=== PATIENT | female | born 1955 | race Caucasian/White ===

== ENCOUNTER 2022-11-20 11:46 | Emergency (ER) | payer MEDICARE ==
[~2022-11-20] VITALS: Ht 162.6 cm; Wt 68.0 kg
[2022-11-20 12:22] LABS: BASOPHILS # (AUTO) 0.1 X10'3 (0-0.2); BASOPHILS % (AUTO) 0.9 % (0-1); EOSINOPHILS # (AUTO) 0.1 X10'3 (0-0.9); HEMATOCRIT 40.2 % (35.0-45.0); HEMOGLOBIN 13.6 g/dl (12.0-16.0); LYMPHOCYTES % (AUTO) 27.6 % (21-51); MEAN CORPUSCULAR HEMOGLOBIN 29.9 PG (27.0-31.0); MEAN CORPUSCULAR HGB CONC 33.8 g/dL (33.0-36.5); MEAN CORPUSCULAR VOLUME 88.6 FL (78-98); MEAN PLATELET VOLUME 7.9 FL (7.4-10.4); MONOCYTES # (AUTO) 0.5 X10'3 (0-0.9); MONOCYTES % (AUTO) 7.4 % (2-12); NEUTROPHILS # (AUTO) 4.6 X10'3 (1.8-7.7); NEUTROPHILS % (AUTO) 63.1 % (42-75); PLATELET COUNT 255 X10'3 (140-440); RED BLOOD COUNT 4.54 X10'6 (4.20-5.60); WHITE BLOOD COUNT 7.3 X10'3 (4.5-11.0)
[2022-11-20 12:29] VITALS: BP 139/95
[2022-11-20 12:40] LABS: ALANINE AMINOTRANSFERASE 31 U/L (12-78); ALBUMIN/GLOBULIN RATIO 1.1 (1.1-1.5); ALKALINE PHOSPHATASE 95 IU/L (46-116); ANION GAP 8 (8-16); ASPARTATE AMINO TRANSFERASE 26 U/L (10-37); BILIRUBIN,TOTAL 0.5 MG/DL (0.1-1.0); BLOOD UREA NITROGEN 16 MG/DL (7-18); BUN/CREATININE RATIO 16.3 (10.0-20.0); CALCIUM 9.2 MG/DL (8.5-10.1); CHLORIDE 100 MMOL/L (99-107); CREATININE 0.98 MG/DL (0.40-0.90); GLUCOSE 91 MG/DL (70-104); POTASSIUM 3.9 MMOL/L (3.5-5.1); SODIUM 137 MMOL/L (135-145); TOTAL CARBON DIOXIDE 28.8 MMOL/L (24-32); TOTAL PROTEIN 7.8 G/DL (6.4-8.2); eGFR 57 ML/MIN
== END 2022-11-20 15:30 | disposition home or self-care (01) ==
LOC: ER 11:47
DX: R55 Syncope and collapse (principal); Z91.041 Radiographic dye allergy status; Z56.0 Unemployment, unspecified
CPT/HCPCS: 36415; 71045; 80053; 84484; 85025; 93005; 99285

== ENCOUNTER 2023-03-24 06:07 | Emergency (ER) | payer MEDICARE ==
[~2023-03-24] VITALS: Ht 162.6 cm; Wt 150.0 kg
[2023-03-24 06:07] VITALS: BP 135/60; PULSE 86; RESP 16; TEMP 98.8; O2SAT 95
[2023-03-24] MEDS ORDERED: dexamethasone sod phosphate 10mg/ml inj PO STA (08:42)
[2023-03-24] MEDS ORDERED: DIPH25CA83 PO (08:51)
[2023-03-24] MEDS ORDERED: CODE118L3 PO (08:51)
== END 2023-03-24 09:30 | disposition home or self-care (01) ==
LOC: ER 06:07
DX: J06.9 Acute upper respiratory infection, unspecified (principal); R07.0 Pain in throat; Z91.041 Radiographic dye allergy status; Z79.899 Other long term (current) drug therapy
CPT/HCPCS: 99283; J1100

== ENCOUNTER 2023-03-26 02:12 | Emergency (ER) | payer MEDICARE ==
[~2023-03-26] VITALS: Ht 162.6 cm; Wt 68.2 kg
[~2023-03-26 02:12] MED LIST: CODE118L3 PO; DIPH25CA83 PO
[2023-03-26] MEDS ORDERED: ondansetron 4mg rapidly disintigrating tab PO STA (02:25)
[2023-03-26 02:58] LABS: BASOPHILS % (AUTO) 0 % (0-1); EOSINOPHILS % (AUTO) 0.6 % (0-6); HEMATOCRIT 34.7 % (35.0-45.0); HEMOGLOBIN 11.9 g/dl (12.0-16.0); LYMPHOCYTES # (AUTO) 0.5 X10'3 (1.1-4.8); LYMPHOCYTES % (AUTO) 9.4 % (21-51); MEAN CORPUSCULAR HEMOGLOBIN 30.2 PG (27.0-31.0); MEAN CORPUSCULAR HGB CONC 34.1 g/dL (33.0-36.5); MEAN CORPUSCULAR VOLUME 88.4 FL (78-98); MEAN PLATELET VOLUME 8.8 FL (7.4-10.4); MONOCYTES # (AUTO) 0.5 X10'3 (0-0.9); MONOCYTES % (AUTO) 8.8 % (2-12); NEUTROPHILS # (AUTO) 4.7 X10'3 (1.8-7.7); NEUTROPHILS % (AUTO) 81.2 % (42-75); PLATELET COUNT 155 X10'3 (140-440); RED BLOOD COUNT 3.93 X10'6 (4.20-5.60); RED CELL DISTRIBUTION WIDTH 13.6 % (11.5-14.5); WHITE BLOOD COUNT 5.8 X10'3 (4.5-11.0)
[2023-03-26 03:01] LABS: BILIRUBIN,URINE NEGATIVE (Neg); CLARITY,URINE SLIGHTLY CLOUDY (Clear); COLOR,URINE STRAW (Yellow); GLUCOSE, URINE NEGATIVE (Neg); KETONES,URINE NEGATIVE (Neg); LEUKOCYTE ESTERASE ,URINE MODERATE (Neg); NITRITES, URINE NEGATIVE (Neg); OCCULT BLOOD,URINE TRACE-INTACT (Neg); PROTEIN,URINE NEGATIVE (Neg); UROBILINOGEN,URINE 0.2 E.U/dL (0.2-1.0)
[2023-03-26 03:02] LABS: UA COLLECTION TYPE CLN CATCH MIDSTREAM
[2023-03-26 03:09] LABS: ALANINE AMINOTRANSFERASE 39 U/L (12-78); ALBUMIN 3.7 G/DL (3.4-5.0); ALBUMIN/GLOBULIN RATIO 1.1 (1.1-1.5); ALKALINE PHOSPHATASE 77 IU/L (46-116); ANION GAP 7 (8-16); ASPARTATE AMINO TRANSFERASE 29 U/L (10-37); BILIRUBIN,TOTAL 0.6 MG/DL (0.1-1.0); BLOOD UREA NITROGEN 9 MG/DL (7-18); CALCIUM 8.3 MG/DL (8.5-10.1); CHLORIDE 97 MMOL/L (99-107); GLUCOSE 110 MG/DL (70-104); LIPASE 145 U/L (73-393); POTASSIUM 3.5 MMOL/L (3.5-5.1); SODIUM 131 MMOL/L (135-145); TOTAL CARBON DIOXIDE 26.9 MMOL/L (24-32); eCRCL 52 ML/MIN; eGFR 62 ML/MIN
[2023-03-26 03:10] LABS: WBC,URINE 20-30 /HPF (0-4)
[2023-03-26 03:12] LABS: BACTERIA,URINE 1+ /HPF (Neg); MUCUS STRANDS NONE SEEN /LPF (Neg); SQUAMOUS EPITHELIAL CELL,UR FEW /LPF (FEW)
[2023-03-26 03:13] LABS: WBC CLUMPS,URINE FEW /HPF (NEGATIVE)
[2023-03-26] MEDS ORDERED: ondansetron 4mg rapidly disintigrating tab PO ONE (04:05)
[2023-03-26] MEDS ORDERED: amox tr/potassium clavulanate 500mg/125mg TAB PO ONE (04:05)
[2023-03-26] MEDS ORDERED: AMOX-419 PO (04:06)
[2023-03-26] MEDS ORDERED: ONDA8TAB13 PO (04:09)
[2023-03-26 04:23] VITALS: BP 143/64; PULSE 72; RESP 16; TEMP 99.7; O2SAT 96
== END 2023-03-26 04:25 | disposition home or self-care (01) ==
LOC: ER 02:12
DX: N39.0 Urinary tract infection, site not specified (principal); Z91.041 Radiographic dye allergy status; Z79.2 Long term (current) use of antibiotics; Z79.899 Other long term (current) drug therapy; Z90.710 Acquired absence of both cervix and uterus
CPT/HCPCS: 36415; 80053; 81001; 83690; 85025; 87088; 99284

== ENCOUNTER 2023-10-20 14:09 | Emergency (ER) | payer MEDICARE ==
[~2023-10-20] VITALS: Ht 162.6 cm; Wt 71.8 kg
[~2023-10-20 14:09] MED LIST changes: +ONDA8TAB13 PO
[2023-10-20 14:23] VITALS: BP 130/85; PULSE 60; RESP 18; TEMP 96.1; O2SAT 96
== END 2023-10-20 18:19 | disposition home or self-care (01) ==
LOC: ER 14:10
DX: M25.552 Pain in left hip (principal); Z91.041 Radiographic dye allergy status; Z79.899 Other long term (current) drug therapy; Z90.710 Acquired absence of both cervix and uterus
CPT/HCPCS: 73502; 93971; 99284

== ENCOUNTER 2024-07-19 14:07 | Emergency (ER) | payer MEDICARE, BC ==
[~2024-07-19] VITALS: Ht 162.6 cm; Wt 70.5 kg
[~2024-07-19 14:07] MED LIST changes: +ONDA-245 PO; -ONDA8TAB13 PO
[2024-07-19] MEDS: acetaminophen 325mg tablet PO ONE (16:04)
[2024-07-19] MEDS: ketorolac trometh 15mg/ml vial 15 MG/ML ML IM ONE (16:05)
[2024-07-19 16:13] VITALS: BP 130/86; PULSE 80; RESP 16; TEMP 98; O2SAT 98
== END 2024-07-19 16:14 | disposition home or self-care (01) ==
LOC: ER 14:09
DX: M25.532 Pain in left wrist (principal); F41.9 Anxiety disorder, unspecified; F32.A Depression, unspecified; Z56.0 Unemployment, unspecified; Z88.1 Allergy status to other antibiotic agents; Z90.710 Acquired absence of both cervix and uterus; Z79.899 Other long term (current) drug therapy
CPT/HCPCS: 29125; 73110; 96372; 99284; J1885; L3908

== ENCOUNTER 2025-04-22 12:31 | Emergency (ER) | payer MEDICARE, BC ==
[~2025-04-22] VITALS: Ht 162.6 cm; Wt 68.9 kg
[2025-04-22 12:44] VITALS: BP 157/56; PULSE 71; RESP 20; TEMP 98.9; O2SAT 98
--- NOTE | 2025-04-22 13:51 | RADIOLOGY REPORT ---
CLINICAL INDICATION: HIP PAIN RT. TECHNIQUE: 1 radiographic views of the pelvis and 2 views of the right hip were obtained. Comparison: DI HIP UNILATERAL 2 VIEWS on DOS: 10/20/23 FINDINGS/IMPRESSION: There is no evidence of acute fracture or dislocation. 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
--- NOTE | 2025-04-22 13:51 | RADIOLOGY REPORT ---
CLINICAL INDICATION: ANKLE PAIN RT. TECHNIQUE: 3 radiographic views of the right ankle were obtained. Comparison: None FINDINGS/IMPRESSION: There is no evidence of acute fracture or dislocation. The visualized joint space is well maintained. The alignment is anatomical. There is no radiopaque foreign body.
[2025-04-22] MEDS ORDERED: DICL20GE TOP (14:08)
--- NOTE | 2025-04-22 14:13 | Physician Documentation ---
History of Present Illness ~ Chief Complaint: Mechanical Fall Stated Complaint: FALL NO THINNERS Time Seen by MD: 13:59 Primary Medical Doctor: DR GARDNER Mode of Arrival: Ambulatory HPI 69-year-old female presents to the ED with a complaint of a ground level fall yesterday where she injured her right hip and right knee. States that most of her pain is in her knee especially with the ambulation. denies any head strike so denies blood thinners Tetanus within 5 Years?: No Medication Reconciliation Allergies: Coded Allergies: erythromycin base (Unverified Allergy, Unknown, 04/22/25) Scheduled Diclofenac Sodium (Voltaren Arthritis Pain), 1 APPLIC TOP BID Diphenhydramine Hcl (Benadryl), 1 CAP PO HS Ondansetron 8mg ODT (Ondansetron Odt), 1 TAB PO Q6H Scheduled PRN Guaifenesin/Codeine Phosphate (Virtussin AC Liquid), 10 ML PO Q6H PRN for cough Past Medical History Past Medical History: Anxiety, Depression Past Surgical History: hysterectomy Alcohol Use: None Drug Use: none Lives with: Family Lives In: Home Occupation: unemployed Review of Systems All Other Systems at this time: Reviewed and Negative ROS As stated above in the HPI, otherwise all systems are reviewed and negative. Physical Exam Vital Signs: Temperature: 98.9, Source: Oral, Heart Rate: 71, Respiratory Rate: 20, BP: 157/56, Pulse Oximetry: 98, Weight: 68.900 Oxygen Flow Rate: 0 Physical Exam General: Alert, no apparent distress. Cardiovascular: Regular rate and rhythm, no murmurs. Gastrointestinal: Soft, nontender, nondistended. Bowels sounds present. Extremities: Normal range of motion, no deformity. negative lachmans, negative mcmurrays, no swelling Neurologic: Oriented x4. Psychiatric: Normal mood and affect. Progress Results/Orders Results/Orders Orders - ARCADIO TORRES [employer] Ortho Orders (04/22/25 ) Vital Signs 04/22/25 04/22/25 12:44 13:03 Temp 98.9 Pulse 71 Resp 20 B/P (MAP) 157/56 Pulse Ox 98 O2 Flow Rate 0 Medical Decision Making Findings Patient did not present in acute distress x-rays are negative for fracture or displacement or dislocation per my interpretation She was negative for any internal knee derangement exam tests. I am recommending rice an Justin wrap and the use of Voltaren gel as she recover Differential Dx:Considerations: Include: Closed head injury, Cardiac injury, Fracture(s), Intraabdominal injury, Pneumothorax, Cerebral contusion, Pulmonary contusion, Spine injury, Tracheal injury, Urological injury, Vascular injury, Abrasion(s), Contusion(s), Foreign body(s), Hematoma(s), Laceration(s), Encephalopathy, Other Departure Disposition: HOME / SELF CARE / HOMELESS Impression: Primary Impression: Fall Additional Impressions: Knee pain Dislocation of hip joint prosthesis Condition: Stable Discharge Instructions: Fall Prevention in the Home, Adult, [id number] Referrals: NO PRIMARY CARE PROVIDER (PCP) Prescriptions Diclofenac Sodium (Voltaren Arthritis Pain) 1 % Gel..gram. 1 APPLIC TOP BID for pain for 10 Days, #30 GM Prov: ARCADIO TORRES NP 04/22/25 Education Educated: Patient Educated regarding: diagnosis Signature Scribe Signature: h Attestation: Scribed for Arcadio Torres Almond Blancher Hand by Arcadio Torres - JENNIFER . 04/22/25 14:12 ARCADIO TORRES NP Apr 22, 2025 14:13
== END 2025-04-22 14:27 | disposition home or self-care (01) ==
LOC: ER 12:32
DX: T84.020A Dislocation of internal right hip prosthesis, initial encounter (principal); M25.561 Pain in right knee; Z88.1 Allergy status to other antibiotic agents; Z88.8 Allergy status to other drugs, medicaments and biological substances; Z90.710 Acquired absence of both cervix and uterus; Z96.649 Presence of unspecified artificial hip joint; F41.9 Anxiety disorder, unspecified; F32.A Depression, unspecified; W18.30XA Fall on same level, unspecified, initial encounter; Y93.89 Activity, other specified; Y92.89 Other specified places as the place of occurrence of the external cause; Y99.8 Other external cause status; Y79.2 Prosthetic and other implants, materials and accessory orthopedic devices associated with adverse incidents
CPT/HCPCS: 73502; 73610; 99284; A6449